=== PATIENT | female | born 1990 | race Caucasian/White ===

== ENCOUNTER 2017-09-06 23:44 | Emergency (ER) | payer BC ==
[2017-09-07] MEDS ORDERED: Ondansetron INJ* 2 MG/ML VIAL IV ONE (00:05)
[2017-09-07] MEDS ORDERED: Morphine VIAL* 10 MG/ML 1 ML VIAL IV ONE (00:05)
[2017-09-07] MEDS ORDERED: NS 0.9% 1000 ML* 1,000 ML IV ONE (00:05)
--- NOTE | 2017-09-07 00:25 | ED ---
Back Pain - HPI Summary HPI Summary: Dysuria 3 days, with left Flank pain and N/V starting tonight. History of kidney stones. Denies fever, cough, sore throat, CP, SOB, abdominal pain, vaginal symptoms, blood in urine , change in BM. Medical history as anemia. Abdominal/pelvic surgical history is none. - History of Current Complaint Chief Complaint: EDFlankPain Stated Complaint: FLANK PAIN Time Seen by Provider: 09/06/17 23:56 Hx Obtained From: Patient Hx Last Menstrual Period: ON DEPOPROVERA Onset/Duration: Sudden Onset Onset/Duration: Started Hours Ago Timing: Constant Back Pain Location: Is Discrete @ Severity Initially: Moderate Severity Currently: Severe Pain Intensity: 8 Pain Scale Used: 0-10 Numeric Character: Sharp Aggravating Symptom(s): Movement Associated Signs And Symptoms: Positive: Flank Pain - Allergies/Home Medications Allergies/Adverse Reactions: Allergies Allergy/AdvReac Type Severity Reaction Status Date / Time cefprozil [From Cefzil] Allergy Hives Verified 09/06/17 23:48 PMH/Surg Hx/FS Hx/Imm Hx Endocrine/Hematology History: Denies: Hx Diabetes, Hx Thyroid Disease Cardiovascular History: Denies: Hx Hypertension Respiratory History: Denies: Hx Asthma, Hx Chronic Obstructive Pulmonary Disease (COPD) GI History: Denies: Hx Ulcer - Surgical History Surgery Procedure, Year, and Place: LITHOTRIPSY Infectious Disease History: No Infectious Disease History: Denies: Hx Clostridium Difficile, Hx Hepatitis, Hx Human Immunodeficiency Virus (HIV), Hx of Known/Suspected MRSA, Hx Shingles, Hx Tuberculosis, Traveled Outside the [place] in Last 30 Days - Family History Known Family History: Positive: None - Social History Alcohol Use: Rare Substance Use Type: Reports: None Smoking Status (MU): Current Every Day Smoker Type: Cigarettes Amount Used/How Often: 1/3 PPD x 7 years Have You Smoked in the Last Year: Yes Review of Systems Constitutional: Negative Eyes: Negative ENT: Negative Cardiovascular: Negative Respiratory: Negative Positive: Vomiting, Nausea Positive: dysuria, frequency, flank pain, pain. Negative: burning, discharge, hematuria, incontinence, urgency Musculoskeletal: Negative Skin: Negative Neurological: Negative Psychological: Normal All Other Systems Reviewed And Are Negative: Yes Physical Exam - Summary Physical Exam Summary: No abdominal pain with palpation. Moderate left flank tenderness. Mild CVA tenderness. Erythema, ecchymosis, deformity to left flank or left lower back Triage Information Reviewed: Yes Vital Signs On Initial Exam: Initial Vitals Temp Pulse Resp BP Pulse Ox 98.3 F 115 22 141/87 98 09/06/17 23:45 09/06/17 23:45 09/06/17 23:45 09/06/17 23:45 09/06/17 23:45 Vital Signs Reviewed: Yes Appearance: Positive: Well-Appearing Skin: Positive: Warm Head/Face: Positive: Normal Head/Face Inspection Eyes: Positive: Normal Neck: Positive: Supple Respiratory/Lung Sounds: Positive: Clear to Auscultation Cardiovascular: Positive: Normal Abdomen Description: Positive: Nontender Musculoskeletal: Positive: Normal Neurological: Positive: Normal Psychiatric: Positive: Normal AVPU Assessment: Alert - Anand Coma Scale Best Eye Response: 4 - Spontaneous Best Motor Response: 6 - Obeys Commands Best Verbal Response: 5 - Oriented Coma Scale Total: 15 Diagnostics - Vital Signs Vital Signs Temp Pulse Resp BP Pulse Ox 09/06/17 23:45 98.3 F 115 22 141/87 98 - Laboratory Result Diagrams: 09/07/17 00:09 09/07/17 00:09 Lab Statement: Any lab studies that have been ordered have been reviewed, and results considered in the medical decision making process. - Radiology abdomen 1 view Xray Interpretation: No Acute Changes - non diagnostic - CT ab/pel w/o CT Interpretation: Positive (See Comments) - 1.7mm stone left UTJ, minimal left hydronephrosis CT Interpretation Completed By: Radiologist Re-Evaluation - Re-Evaluation 1 Re-Evaluation Time: 02:29 Change: Improved Comment: Pain well-controlled by morphine. Patient states 0/10 pain now, down from 9/10 Back Pain Course/Dx - Course Course Of Treatment: [facility] reference number [id number], negative. 1.7 mm stone. Afebrile, vital signs and labs within normal limits. Hemoglobin 10.7, history of anemia. We will give prescription for pain medication and urine screen, and patient to pass stone outpatient with follow-up with urology - Diagnoses Provider Diagnoses: Kidney stone on left side Discharge - Sign-Out/Discharge Documenting (check all that apply): Discharge/Admit/Transfer - Discharge Plan Condition: Stable Disposition: HOME Prescriptions: HYDROcodone/ACETAMIN 5-325 MG* [Darden 5-325 TAB*] 1 tab PO Q6H PRN 2 Days #16 tab MDD 4-6 tabs PRN Reason: Pain Promethazine TAB* [Phenergan TAB*] 25 mg PO Q8H PRN 5 Days #15 tab PRN Reason: Nausea Patient Education Materials: Kidney Stones (ED), How to Strain Your Urine (ED) Forms: *School Release Referrals: Bhanu TYLER,Chris Chairez [Primary Care Provider] - Rudy Wise MD [Medical Doctor] - Additional Instructions: Use urine screen until stone is collected. If symptoms do not improve, return to the ED or follow-up with urology Dr. Wise. - Billing Disposition and Condition Condition: STABLE Disposition: HOME
[2017-09-07 00:27] LABS: Hematocrit 34 % (35-47); Hemoglobin 10.7 g/dl (12.0-16.0); Mean Corpuscular HGB Conc 32 g/dl (31-36); Mean Corpuscular Hemoglobin 19 pg (27-31); Mean Corpuscular Volume 62 fL (80-97); Mean Platelet Volume 8.9 um3 (7.4-10.4); Platelet Count 214 10^3/ul (150-450); Red Blood Count 5.51 10^6/ul (4.0-5.4); Red Cell Distribution Width 15 % (10.5-15); White Blood Count 7.5 10^3/ul (3.5-10.8)
[2017-09-07 00:35] LABS: EGFR Non-African American 82.5 (>60)
[2017-09-07 00:52] LABS: ABS Basophils 0.1 10^3/ul (0-0.2); ABS Eosinophils 0.2 10^3/ul (0-0.6); ABS Monocytes 0.5 10^3/ul (0-0.8); ABS Neutrophils 3.7 10^3/ul (1.5-7.7); ABS Nucleated RBC 0 10^3/ul; Nucleated Red Blood Cells % 0.1
[2017-09-07] MEDS ORDERED: Morphine VIAL* 4 MG/ML VIAL (1 ml vial) IV ONE (01:00)
[2017-09-07] MEDS ORDERED: HYDROcodone/ACETAMIN 5-325 MG* 1 TAB PO ONE (02:49)
[2017-09-07 02:54] LABS: Urine Appearance Clear; Urine Blood Negative (Negative); Urine Color Yellow; Urine Ketones Negative (Negative); Urine Protein Negative (Negative); Urine Specific Gravity 1.015 (1.010-1.030); Urine Urobilinogen Negative (Negative)
[2017-09-07] MEDS ORDERED: Ondansetron ODT TAB* 4 MG PO ONE (02:54)
[2017-09-07 03:03] VITALS: BP 117/76
--- NOTE | 2017-09-07 08:10 | RAD ---
INDICATION: Left flank pain. COMPARISON: Comparison is made with a prior CT of the abdomen and pelvis from April 26, 2015. TECHNIQUE: A single frontal supine film of the abdomen was obtained. FINDINGS: The small bowel and colon appear nondistended. No renal calculi are appreciated. There are couple small calcific densities which project over the pelvis on the left side. IMPRESSION: THERE ARE SMALL CALCIFIC DENSITIES WHICH PROJECT OVER THE PELVIS ON THE LEFT SIDE MOST LIKELY REPRESENTING PHLEBOLITHS LESS LIKELY URETERAL CALCULI.
--- NOTE | 2017-09-07 08:12 | RAD ---
Indication: Flank pain. CT of the abdomen and pelvis was performed without oral or IV contrast administration. Comparison is made with previous exam dated April 26, 2015. Lung bases demonstrate no pleural fluid, nodules or masses. Emphysematous cyst is noted in the right lung base just adjacent to the right heart border. Heart is of normal size without evidence of pericardial effusion. The liver is normal in size. No focal lesions or intrahepatic ductal dilatation is noted. The spleen is normal in size. Pancreas demonstrates no mass effect or ductal dilatation. Common duct is not dilated. No adrenal masses are noted. The kidneys demonstrate tiny 2 mm calculi at the left ureterovesicular junction. Fullness of the left renal collecting system and left ureter is noted. No pelvic adenopathy is noted. The uterus and ovaries are unremarkable. No hernias are noted. Aorta and inferior vena cava are unremarkable. No dilated loops of bowel are noted. The colon is filled with stool. The appendix is visualized and is within normal limits. No free fluid is identified. No hernias are noted. IMPRESSION: 2 MM DISTAL LEFT URETERAL STONE AT THE LEFT URETEROVESICULAR JUNCTION WITH MILD LEFT HYDRONEPHROSIS. NO EVIDENCE OF OTHER MASSES OR FLUID COLLECTIONS ARE NOTED. EMPHYSEMATOUS CYST IS NOTED IN THE RIGHT LUNG BASE JUST ADJACENT TO THE RIGHT HEART BORDER.
--- NOTE | 2017-09-08 06:08 | PN ---
Progress Note - Progress Note Date of Service: 09/07/17 Note: Pt. seen in the ER 09/07 for flank pain. Final radiology read on KUB IMPRESSION : THERE ARE SMALL CALCIFIC DENSITIES WHICH PROJECT OVER THE PELVIS ON THE LEFT SIDE MOST LIKELY REPRESENTING PHLEBOLITHS LESS LIKELY URETERAL CALCULI. Abd. CT was ordered in ER and confirmed presence of urolithiasis. Pt. appropriately treated.
== END 2017-09-07 03:03 | disposition home or self-care (01) ==
LOC: ED 23:44
DX: N13.2 Hydronephrosis with renal and ureteral calculous obstruction (principal); Z87.442 Personal history of urinary calculi; J98.4 Other disorders of lung; Z88.1 Allergy status to other antibiotic agents; F17.210 Nicotine dependence, cigarettes, uncomplicated
CPT/HCPCS: 36415; 74018; 74176; 80053; 81003; 81015; 83605; 83690; 84702; 85025; 86140; 87086; 96374; 96375; 99283; A9270-GY; J2270; J2405

== ENCOUNTER 2018-12-04 09:17 | Emergency (ER) | payer BC ==
[2018-12-04] MEDS ORDERED: Ketorolac INJ* 30 MG/ML 1 ML VIAL IV PUSH ONE (10:21)
[2018-12-04] MEDS ORDERED: NS 0.9% 1000 ML** 1,000 ML IV ONE (10:21)
[2018-12-04 10:22] LABS: ABS Basophils 0.1 10^3/ul (0-0.2); ABS Eosinophils 0.2 10^3/ul (0-0.6); ABS Lymphocytes 2.2 10^3/ul (1.0-4.8); ABS Monocytes 0.5 10^3/ul (0-0.8); Eosinophil % 3.4 %; Hematocrit 37 % (35-47); Hemoglobin 11.7 g/dL (12.0-16.0); Lymphocyte % 32.2 %; Mean Corpuscular HGB Conc 32 g/dL (31-36); Mean Corpuscular Hemoglobin 20 pg (27-31); Mean Corpuscular Volume 62 fL (80-97); Mean Platelet Volume 9.1 fL (7.4-10.4); Nucleated Red Blood Cells % 0.1; Platelet Count 225 10^3/uL (150-450); Red Blood Count 6.03 10^6 /uL (3.70-4.87); Red Cell Distribution Width 15 % (10-15)
--- NOTE | 2018-12-04 10:31 | ED ---
Abdominal Pain/Female - HPI Summary HPI Summary: This patient is a 28-year-old female with a history of kidney stones presenting to the ED with left-sided flank pain. She states pain began yesterday and is a dull ache. Her symptoms with kidney stones 10 to be sharp shooting pain over the flank area radiating to the abdomen and into the groin. She denies this currently. She denies any abdominal pain. She does endorse not being able to urinate well over the past 2 days, although she feels she needs to urinate. She is also not had a bowel movement in 2 days which is also not normal for her. She denies any other symptoms including headache, CP, SOB, weakness, recent illness, fevers, sweats, chills. Denies any gross hematuria. Denies any chance of STDs. She was recently taken off Depakote and has not started a new control medication. She endorses chance of . PMHx includes: kidney stone Surg hx: none Medications: none Social hx: nonsmoker, drinks occasionally - History of Current Complaint Chief Complaint: EDFlankPain Stated Complaint: FLANK PAIN LEFT SIDE Time Seen by Provider: 12/04/18 09:41 Hx Obtained From: Patient Hx Last Menstrual Period: ON DEPOPROVERA ?: No Onset/Duration: Sudden Onset Timing: Constant Severity Initially: Moderate Severity Currently: Moderate Pain Intensity: 6 Pain Scale Used: 0-10 Numeric Location: Flank Radiates: No Character: Dull Aggravating Factor(s): Nothing Alleviating Factor(s): Nothing Associated Signs and Symptoms: Positive: Urinary Symptoms - Risk Factors Ectopic Risk Factor: Negative Ovarian Torsion Risk Factor: Negative Allergies/Adverse Reactions: Allergies Allergy/AdvReac Type Severity Reaction Status Date / Time cefprozil [From Cefzil] Allergy Hives Verified 12/04/18 09:50 PMH/Surg Hx/FS Hx/Imm Hx Previously Healthy: Yes Endocrine/Hematology History: Denies: Hx Diabetes, Hx Thyroid Disease Cardiovascular History: Denies: Hx Hypertension Respiratory History: Denies: Hx Asthma, Hx Chronic Obstructive Pulmonary Disease (COPD) GI History: Denies: Hx Ulcer - Surgical History Surgery Procedure, Year, and Place: LITHOTRIPSY - Immunization History Hx Pertussis Vaccination: No Immunizations Up to Date: Yes Infectious Disease History: No Infectious Disease History: Denies: Hx Clostridium Difficile, Hx Hepatitis, Hx Human Immunodeficiency Virus (HIV), Hx of Known/Suspected MRSA, Hx Shingles, Hx Tuberculosis, Traveled Outside the [place] in Last 30 Days - Family History Known Family History: Positive: None - Social History Occupation: Employed Full-time Lives: With Family Alcohol Use: Rare Hx Substance Use: No Substance Use Type: Reports: None Hx Tobacco Use: Yes Smoking Status (MU): Current Every Day Smoker Type: Cigarettes Amount Used/How Often: 1/3 PPD x 7 years Have You Smoked in the Last Year: Yes Review of Systems Constitutional: Negative Negative: Fever, Chills, Fatigue, Skin Diaphoresis Negative: Palpitations, Chest Pain Negative: Shortness Of Breath, Cough Negative: Abdominal Pain, Vomiting, Diarrhea, Nausea - not currently - yesterday Positive: see HPI, flank pain Negative: Arthralgia, Myalgia All Other Systems Reviewed And Are Negative: Yes Physical Exam Triage Information Reviewed: Yes Vital Signs On Initial Exam: Initial Vitals Temp Pulse Resp BP Pulse Ox 97.7 F 97 18 148/109 99 12/04/18 09:28 12/04/18 09:28 12/04/18 09:28 12/04/18 09:28 12/04/18 09:28 Vital Signs Reviewed: Yes Appearance: Positive: Well-Appearing, Well-Nourished Skin: Positive: Warm, Skin Color Reflects Adequate Perfusion Head/Face: Positive: Normal Head/Face Inspection Eyes: Positive: EOMI, DALE, Conjunctiva Clear Neck: Positive: Supple, No Lymphadenopathy Respiratory/Lung Sounds: Positive: Clear to Auscultation, Breath Sounds Present Cardiovascular: Positive: RRR, Pulses are Symmetrical in both Upper and Lower Extremities Abdomen Description: Positive: Nontender, Soft, CVA Tenderness (L). Negative: CVA Tenderness (R), Distended, Guarding, Hepatomegaly, McBurney's Point Tenderness, Peritoneal Signs Musculoskeletal: Positive: Normal, Strength/ROM Intact Neurological: Positive: Sensory/Motor Intact, Alert, Oriented to Person Place, Time, Speech Normal Psychiatric: Positive: Affect/Mood Appropriate AVPU Assessment: Alert Diagnostics - Vital Signs Vital Signs Temp Pulse Resp BP Pulse Ox 12/04/18 10:16 90 124/90 97 12/04/18 10:03 97 100 12/04/18 09:46 104 134/98 100 12/04/18 09:44 97 99 08/06/19 09:28 97.7 F 97 18 148/109 99 - Laboratory Lab Results: Lab Results 12/04/18 Range/Units 10:05 WBC 7.0 (3.5-10.8) 10^3/uL RBC 6.03 H (3.70-4.87) 10^6 /uL Hgb 11.7 L (12.0-16.0) g/dL Hct 37 (35-47) % MCV 62 L (80-97) fL MCH 20 L (27-31) pg MCHC 32 (31-36) g/dL RDW 15 (10-15) % Plt Count 225 (150-450) 10^3/uL MPV 9.1 (7.4-10.4) fL Neut % (Auto) 56.9 % Lymph % (Auto) 32.2 % [place] % (Auto) 6.6 % Eos % (Auto) 3.4 % Baso % (Auto) 0.9 % Absolute Neuts (auto) 4.0 (1.5-7.7) 10^3/ul Absolute Lymphs (auto) 2.2 (1.0-4.8) 10^3/ul Absolute Monos (auto) 0.5 (0-0.8) 10^3/ul Absolute Eos (auto) 0.2 (0-0.6) 10^3/ul Absolute Basos (auto) 0.1 (0-0.2) 10^3/ul Absolute Nucleated RBC 0.0 10^3/ul Nucleated RBC % 0.1 Result Diagrams: 12/04/18 10:05 12/04/18 10:11 Lab Statement: Any lab studies that have been ordered have been reviewed, and results considered in the medical decision making process. Abdominal Pain Fem Course/Dx - Course Course Of Treatment: Patient is evaluated for left-sided flank pain which is nonradiating associated with obstructive urinary symptoms. On physical examination patient appears well, nondiaphoretic and nontoxic in appearing. Vital signs are stable. CVA tenderness to the left, no CVA tenderness to the right. No abdominal tenderness on my palpation throughout 4 quadrants. Lungs CTA. RRR. EOMI/PERRLA. Labs obtained: Labs are unremarkable. UA obtained: unremarkable. CT abdomen/pelvis: No evidence of uropathy or stones. Patient is given Toradol and fluids. Current pain reports a 3/10. Pain is worse with with movement and better with rest and heat. Likely muscle strain. She will be dc'd at this time with toradol and flexeril. - Diagnoses Provider Diagnoses: Muscle strain Discharge - Sign-Out/Discharge Documenting (check all that apply): Patient Departure Patient Received Moderate/Deep Sedation with Procedure: No - Discharge Plan Condition: Stable Disposition: HOME Prescriptions: Cyclobenzaprine TAB* [Flexeril TAB*] 10 mg PO BID PRN #10 tab PRN Reason: Pain - Mild Ketorolac TAB * [Toradol TAB *] 10 mg PO Q6H #16 tab Patient Education Materials: Muscle Strain (DC) Forms: *Work Release Referrals: Bhanu TYLER,Chris Chairez [Primary Care Provider] - Additional Instructions: Toradol 4 times daily 4 days as needed use heating pad as much as possible Flexeril twice daily as needed for muscle pain If symptoms become worse, return to the ED - Billing Disposition and Condition Condition: STABLE Disposition: Home - Attestation Statements Provider Attestation: I was available for consultation for this patient. I did not participate in any medical decision making or disposition decisions unless I am specifically named in the chart as having consulted on the patient. If I have consulted on the patient, please see my own ED note on the patient encounter. Anika Chow MD
[2018-12-04 10:43] LABS: Urine Appearance Clear; Urine Bilirubin Negative (Negative); Urine Blood Negative (Negative); Urine Color Yellow; Urine Glucose Negative (Negative); Urine Ketones Negative (Negative); Urine Nitrite Negative (Negative); Urine Protein Negative (Negative); Urine Specific Gravity 1.006 (1.010-1.030); Urine Urobilinogen Negative (Negative)
[2018-12-04 10:48] LABS: ALT 79 U/L (7-52); AST 24 U/L (13-39); Albumin 4.9 g/dL (3.2-5.2); Alkaline Phosphatase 64 U/L (34-104); Anion Gap 8 mmol/L (2-11); BUN/Creatinine Ratio 13.5 (8-20); Blood Urea Nitrogen 10 mg/dL (6-24); C Reactive Protein < 1.00 mg/L (<8.01); CO2 Carbon Dioxide 24 mmol/L (22-32); Calcium 10.3 mg/dL (8.6-10.3); Chloride 109 mmol/L (101-111); EGFR African American 113.1 (>60); EGFR Non-African American 93.5 (>60); Globulin 2.5 g/dL (2-4); Glucose 90 mg/dL (70-100); Potassium 3.7 mmol/L (3.5-5.0); Sodium 141 mmol/L (135-145); Total Protein 7.4 g/dL (6.4-8.9)
[2018-12-04 10:53] LABS: HCG Pregnancy < 0.60 mIU/mL
[2018-12-04] MEDS ORDERED: Morphine 4 MG/ML VIAL (1 ml) 4 MG/ML VIAL IV ONE (12:05)
[2018-12-04 13:00] VITALS: BP 133/87
== END 2018-12-04 13:01 | disposition home or self-care (01) ==
LOC: ED 09:17
DX: S39.011A Strain of muscle, fascia and tendon of abdomen, initial encounter (principal); X58.XXXA Exposure to other specified factors, initial encounter; Y92.9 Unspecified place or not applicable; F17.210 Nicotine dependence, cigarettes, uncomplicated; Z88.1 Allergy status to other antibiotic agents
CPT/HCPCS: 36415; 74176; 80053; 81003; 83690; 84702; 85025; 86140; 96361; 96374; 96375; 99283; J1885; J2270

== ENCOUNTER 2019-04-27 15:50 | Emergency (ER) | payer BC ==
[2019-04-27 15:57] VITALS: BP 125/91
--- NOTE | 2019-04-27 16:01 | UC ---
Respiratory Complaint HPI - HPI Summary HPI Summary: has had a flu vaccine this year works as a nurse at [employer] and was sent home from work today with fever chills body aches cough and uri sx. - History of Current Complaint Chief Complaint: UCRespiratory Stated Complaint: CHEST CONGESTION Time Seen by Provider: 04/27/19 16:00 Hx Obtained From: Patient Hx Last Menstrual Period: 04/01/19 ?: No Onset/Duration: Sudden Onset, Lasting Days - 4 Timing: Constant Pain Intensity: 0 Character: Cough: Nonproductive Aggravating Factors: Exertion Alleviating Factors: Nothing Associated Signs And Symptoms: Positive: Chills, URI, Nasal Congestion, Sinus Discomfort - Allergies/Home Medications Allergies/Adverse Reactions: Allergies Allergy/AdvReac Type Severity Reaction Status Date / Time cefprozil [From Cefzil] Allergy Hives Verified 04/27/19 15:58 Home Medications: Home Medications D-Methorphan/PE/Acetaminophen [Vicks Dayquil Liquicaps] 2 cap PO Q6HR 04/27/19 [ History Confirmed 04/27/19] Dm/Acetaminophen/Doxylamine [Vicks Nyquil Liquicaps] 2 cap PO BEDTIME 04/27/19 [ History Confirmed 04/27/19] PMH/Surg Hx/FS Hx/Imm Hx Previously Healthy: Yes - Surgical History Surgical History: Yes Surgery Procedure, Year, and Place: LITHOTRIPSY - Family History Known Family History: Positive: None - Social History Occupation: Employed Full-time Lives: With Family Alcohol Use: Rare Substance Use Type: None Smoking Status (MU): Current Every Day Smoker Type: Cigarettes Amount Used/How Often: 1/3 PPD x 7 years Have You Smoked in the Last Year: Yes Cessation Counseling: Counseled 3+Min - 10 Min Review of Systems All Other Systems Reviewed And Are Negative: Yes Constitutional: Positive: Chills, Fatigue Skin: Positive: Negative Eyes: Positive: Negative ENT: Positive: Ear Ache, Nasal Discharge, Sinus Congestion Respiratory: Positive: Cough Cardiovascular: Positive: Negative Gastrointestinal: Positive: Negative Genitourinary: Positive: Negative Motor: Positive: Negative Neurovascular: Positive: Negative Musculoskeletal: Positive: Negative Neurological: Positive: Negative Psychological: Positive: Negative Is Patient Immunocompromised?: No Physical Exam Triage Information Reviewed: Yes Appearance: No Pain Distress, Well-Nourished, Ill-Appearing - mild Vital Signs: Initial Vital Signs Temp 98.3 F 04/27/19 15:55 Pulse 101 04/27/19 15:55 Resp 18 04/27/19 15:55 BP 125/91 04/27/19 15:55 Pulse Ox 98 04/27/19 15:55 Vital Signs Reviewed: Yes Eye Exam: Normal Eyes: Positive: Conjunctiva Clear ENT Exam: Normal ENT: Positive: Normal ENT inspection, Hearing grossly normal, Pharynx normal, Nasal congestion, TMs normal, Uvula midline. Negative: Nasal drainage, Tonsillar swelling, Tonsillar exudate, Trismus, Muffled voice, Hoarse voice, Sinus tenderness Dental Exam: Normal Neck exam: Normal Neck: Positive: Supple, Nontender, No Lymphadenopathy Respiratory Exam: Normal Respiratory: Positive: Chest non-tender, Lungs clear, Normal breath sounds, No respiratory distress, No accessory muscle use Cardiovascular Exam: Normal Cardiovascular: Positive: RRR, No Murmur, Pulses Normal, Brisk Capillary Refill Musculoskeletal Exam: Normal Musculoskeletal: Positive: Strength Intact, ROM Intact Neurological Exam: Normal Neurological: Positive: Alert, Muscle Tone Normal Psychological Exam: Normal Skin Exam: Normal Respiratory Course/Dx - Course Course Of Treatment: tylenol, ibuprofen albuterol mdi, zithromax, increase fluids, rest follow with pcp - Differential Dx/Diagnosis Provider Diagnosis: Bronchitis, acute, with bronchospasm, Nicotine dependence Discharge ED - Sign-Out/Discharge Documenting (check all that apply): Patient Departure All imaging exams completed and their final reports reviewed: No Studies - Discharge Plan Condition: Stable Disposition: HOME Prescriptions: Albuterol HFA INHALER* [Ventolin HFA Inhaler*] 2 puff INH Q4H PRN #1 mdi PRN Reason: Congestion Azithromycin TAB* [Zithromax TAB (Z-ALVAREZ) 250 mg #6 tabs] 2 tab PO .TODAY, THEN 1 DAILY #1 alvarez Patient Education Materials: How to Stop Smoking (ED), Acute Bronchitis (ED) Forms: *Work Release Referrals: Bhanu TYLER,Chris Chairez [Primary Care Provider] - If Needed - Billing Disposition and Condition Condition: STABLE Disposition: Home
== END 2019-04-27 16:22 | disposition home or self-care (01) ==
LOC: UCEAST 15:50
DX: J20.9 Acute bronchitis, unspecified (principal); F17.210 Nicotine dependence, cigarettes, uncomplicated; H92.09 Otalgia, unspecified ear; J34.89 Other specified disorders of nose and nasal sinuses; Z88.1 Allergy status to other antibiotic agents
CPT/HCPCS: 99212; G0463

== ENCOUNTER 2019-06-11 09:37 | Emergency (ER) | payer BC ==
--- NOTE | 2019-06-11 10:08 | ED ---
Abdominal Pain/Female - HPI Summary HPI Summary: Patient is a 28 y/o F presenting to the ED for a chief complaint of LUQ abdominal pain that radiates to the upper back for the last 1 weeks. Patient denies dysuria, constipation, hematuria, fever, chills, nausea, vomiting, bilateral LE edema, or cough. Sitting worsens the abdominal pain. Lying down or standing worsens the abdominal pain. She states she had a CT in the past that showed an enlarged spleen. PMHx is significant for nephrolithiasis and thalassemia. PSHx is significant for lip surgery. Patient denies recent long distance travel or injury. LNMP was on 05/20/19. Medications reviewed. Allergies noted. - History of Current Complaint Chief Complaint: EDAbdPain Stated Complaint: SHOULDER AND RIB PAIN PER PT Time Seen by Provider: 06/11/19 09:57 Hx Obtained From: Patient Hx Last Menstrual Period: 04/01/19 Onset/Duration: Sudden Onset, Still Present Timing: Constant Severity Initially: Moderate Severity Currently: Moderate Pain Intensity: 5 Pain Scale Used: 0-10 Numeric Location: Discrete At: LUQ Radiates: Yes Radiates to: Back - Upper Character: Other: - Standing and lying down Aggravating Factor(s): Other: - Sitting Associated Signs and Symptoms: Positive: Back Pain - Upper. Negative: Fever, Cough, Constipation, Urinary Symptoms - Dysuria or hematuria, Nausea, Vomiting Allergies/Adverse Reactions: Allergies Allergy/AdvReac Type Severity Reaction Status Date / Time cefprozil [From Cefzil] Allergy Hives Verified 04/27/19 15:58 PMH/Surg Hx/FS Hx/Imm Hx Previously Healthy: Yes Endocrine/Hematology History: Reports: Other Endocrine/Hematological Disorders - thalassemia Denies: Hx Diabetes, Hx Thyroid Disease Cardiovascular History: Denies: Hx Hypertension Respiratory History: Denies: Hx Asthma, Hx Chronic Obstructive Pulmonary Disease (COPD) GI History: Denies: Hx Ulcer History: Reports: Hx Kidney Stones Sensory History: Denies: Hx Legally Blind, Hx Deafness Opthamlomology History: Denies: Hx Legally Blind EENT History: Denies: Hx Deafness - Surgical History Surgical History: Yes Surgery Procedure, Year, and Place: LITHOTRIPSY Infectious Disease History: No Infectious Disease History: Denies: Hx Clostridium Difficile, Hx Hepatitis, Hx Human Immunodeficiency Virus (HIV), Hx of Known/Suspected MRSA, Hx Shingles, Hx Tuberculosis, Traveled Outside the [place] in Last 30 Days - Family History Known Family History: Negative: Diabetes, Renal Disease - Social History Lives: With Family Alcohol Use: Rare Hx Substance Use: No Substance Use Type: Reports: None Hx Tobacco Use: Yes Smoking Status (MU): Current Every Day Smoker Type: Cigarettes Amount Used/How Often: 1/3 PPD x 7 years Have You Smoked in the Last Year: Yes Review of Systems Negative: Fever, Chills Negative: Cough Positive: Abdominal Pain - LUQ. Negative: Vomiting, Nausea, Other - Negative constipation Negative: dysuria, hematuria Negative: Edema - Bilateral LE All Other Systems Reviewed And Are Negative: Yes Physical Exam - Summary Physical Exam Summary: Constitutional: Well-developed, Well-nourished, Alert. (-) Distressed Skin: Warm, Dry HENT: Normocephalic; Atraumatic Eyes: Conjunctiva normal Neck: Musculoskeletal ROM normal neck. (-) JVD, (-) Stridor, (-) Tracheal deviation Cardio: Rhythm regular, rate normal, Heart sounds normal; Intact distal pulses; Radial pulses are 2+ and symmetric. (-) Murmur Pulmonary/Chest wall: Effort normal. (-) Respiratory distress, (-) Wheezes, (-) Rales Abd: Soft, (-) Distension, (-) Guarding, (-) Rebound. Mild LUQ tenderness. Musculoskeletal: (-) Edema Lymph: (-) Cervical adenopathy Neuro: Alert, Oriented x3 Psych: Mood and affect Normal Triage Information Reviewed: Yes Vital Signs On Initial Exam: Initial Vitals Temp Pulse Resp BP Pulse Ox 97.5 F 95 18 153/83 99 06/11/19 09:37 06/11/19 09:37 06/11/19 09:37 06/11/19 09:37 06/11/19 09:37 Vital Signs Reviewed: Yes Procedures - Sedation Patient Received Moderate/Deep Sedation with Procedure: No Diagnostics - Vital Signs Vital Signs Temp Pulse Resp BP Pulse Ox 06/11/19 10:04 94 98 06/11/19 09:37 97.5 F 95 18 153/83 99 - Laboratory Result Diagrams: 06/11/19 10:08 06/11/19 10:08 Lab Statement: Any lab studies that have been ordered have been reviewed, and results considered in the medical decision making process. Abdominal Pain Fem Course/Dx - Course Course Of Treatment: Patient is here with left upper quadrant pain. Patient is overall well-appearing with no tenderness on exam. Patient had laboratory performed which was grossly unremarkable. Patient has no PE risk factors and is perc negative. Patient was encouraged to follow-up with her primary care doctor. Patient was started on Pepcid to see if this helps her symptoms as a trial. - Diagnoses Provider Diagnoses: LUQ abdominal pain Discharge ED - Sign-Out/Discharge Documenting (check all that apply): Patient Departure - Discharge - Discharge Plan Condition: Stable Disposition: HOME Prescriptions: Famotidine TAB* [Pepcid 20 MG TAB*] 20 mg PO DAILY 14 Days #14 tab Patient Education Materials: Abdominal Pain (ED) Forms: *Work Release Referrals: Bhanu TYLER,Chris Chairez [Primary Care Provider] - Additional Instructions: PLEASE RETURN TO EMERGENCY DEPARTMENT FOR SEVERE ABDOMINAL PAIN, UNEXPECTED VAGINAL BLEEDING, FEVER, CHILLS, OR ANY NEW OR WORSENING SYMPTOMS. Please follow up with your primary care physician. Please make all follow-ups in 1-3 days unless I advise you otherwise. Try taking your prescribed Pepcid for 2 weeks. - Billing Disposition and Condition Condition: STABLE Disposition: Home - Attestation Statements Document Initiated by Scribe: Yes Documenting Cedibe: Yenny Pappas Provider For Whom Justus is Documenting (Include Credential): Gareth Barron MD Scribe Attestation: Yenny Theodore, scribed for Gareth Barron MD on 06/11/19 at 1744. Scribe Documentation Reviewed: Yes Provider Attestation: The documentation as recorded by the Yenny cabral accurately reflects the service I personally performed and the decisions made by , Gareth Barron MD Status of Scribe Document: Viewed
[2019-06-11] MEDS ORDERED: Al Hydrox/Mg Hydrox/Simet LIQ* 30 ML UDC PO ONE (10:10)
[2019-06-11 10:21] LABS: ABS Basophils 0.1 10^3/ul (0-0.2); ABS Eosinophils 0.2 10^3/ul (0-0.6); ABS Lymphocytes 2.8 10^3/ul (1.0-4.8); ABS Monocytes 0.4 10^3/ul (0-0.8); ABS Neutrophils 4.6 10^3/ul (1.5-7.7); Eosinophil % 2.9 %; Hematocrit 36 % (35-47); Hemoglobin 11.8 g/dL (12.0-16.0); Lymphocyte % 34.3 %; Mean Corpuscular HGB Conc 33 g/dL (31-36); Mean Corpuscular Hemoglobin 20 pg (27-31); Mean Corpuscular Volume 60 fL (80-97); Mean Platelet Volume 9.3 fL (7.4-10.4); Platelet Count 261 10^3/uL (150-450); Red Blood Count 5.94 10^6 /uL (3.70-4.87); Red Cell Distribution Width 16 % (10-15); White Blood Count 8.2 10^3/uL (3.5-10.8)
[2019-06-11 10:35] LABS: ALT 39 U/L (7-52); AST 24 U/L (13-39); Albumin 4.7 g/dL (3.2-5.2); Albumin/Globulin Ratio 1.9 (1-3); Alkaline Phosphatase 78 U/L (34-104); Anion Gap 6 mmol/L (2-11); BUN/Creatinine Ratio 14.9 (8-20); Blood Urea Nitrogen 11 mg/dL (6-24); CO2 Carbon Dioxide 26 mmol/L (22-32); Calcium 9.6 mg/dL (8.6-10.3); Chloride 107 mmol/L (101-111); EGFR African American 113.1 (>60); EGFR Non-African American 93.5 (>60); Globulin 2.5 g/dL (2-4); Glucose 90 mg/dL (70-100); Potassium 3.8 mmol/L (3.5-5.0); Sodium 139 mmol/L (135-145); Total Protein 7.2 g/dL (6.4-8.9)
[2019-06-11 10:40] LABS: Microcytosis 3+
[2019-06-11 10:41] LABS: HCG Pregnancy < 0.60 mIU/mL; Polychromasia 1+
[2019-06-11 11:18] LABS: Urine Appearance Clear; Urine Bilirubin Negative (Negative); Urine Blood Negative (Negative); Urine Color Straw; Urine Glucose Negative (Negative); Urine Ketones Negative (Negative); Urine Nitrite Negative (Negative); Urine Protein Negative (Negative); Urine Specific Gravity 1.005 (1.010-1.030); Urine Urobilinogen Negative (Negative)
[2019-06-11 11:28] VITALS: BP 121/93
== END 2019-06-11 11:27 | disposition home or self-care (01) ==
LOC: ED 09:37
DX: R10.12 Left upper quadrant pain (principal); D56.9 Thalassemia, unspecified; F17.210 Nicotine dependence, cigarettes, uncomplicated
CPT/HCPCS: 36415; 80053; 81003; 83690; 84702; 85025; 99282; A9270-GY